=== PATIENT | female | born 1980 | race American Indian/Alaskan Native ===

== ENCOUNTER 2019-06-23 19:54 | Emergency (ER) | payer BC ==
[2019-06-23 20:00] VITALS: BP 148/98
--- NOTE | 2019-06-23 20:18 | Emergency Department Report ---
HPI - General Chief Complaint: Upper Respiratory Infection Time Seen by Provider: 06/23/19 20:18 - HPI HPI: This is a 38-year-old female well-nourished well-developed in no acute distress. Patient here reports that she is cough with stuffy nose and occasional chest pain with coughing. She said this is been going on for 5 days. She denies any fever or chills. Denies any nausea vomiting or diarrhea. Denies any shortness of breath or chest pain. Denies any neck pain or stiffness. Denies any headache. Denies any abdominal pain, vaginal bleeding or discharge. Pain is 0/10. She has a history of hypertension and asthma and report that she feels like it is her allergy but is a little bit worse than usual. No medication taken prior to coming to the emergency room. ED Past Medical Hx - Past Medical History Previous Medical History?: Yes Hx Hypertension: Yes Hx Asthma: Yes - Surgical History Past Surgical History?: Yes Hx Cholecystectomy: Yes (2017) - Family History Family history: hypertension - Social History Smoking Status: Never Smoker Substance Use Type: Alcohol - Medications Home Medications: Home Medications Medication Instructions Recorded Confirmed Last Taken Type Azithromycin [Zithromax Z-BO] 250 mg PO DAILY 5 Days #1 pkg 06/23/19 Unknown Rx Benzonatate [Tessalon Perles] 100 mg PO Q8HR PRN #12 capsule 06/23/19 Unknown Rx Cetirizine HCl [ZyrTEC] 10 mg PO QAM 14 Days #14 capsule 06/23/19 Unknown Rx Fluticasone [Flonase] 1 spray NS QDAY 14 Days #1 bottle 06/23/19 Unknown Rx ED Review of Systems ROS: Stated complaint: STUFFY NOSE, CHEST PAIN COUGH Other details as noted in HPI Constitutional: denies: chills, fever Eyes: denies: eye discharge ENT: congestion. denies: ear pain, throat pain, hearing loss Respiratory: cough. denies: shortness of breath, SOB with exertion, SOB at rest, stridor, wheezing Cardiovascular: chest pain (With coughing). denies: palpitations, dyspnea on exertion, edema, syncope Gastrointestinal: denies: abdominal pain, nausea, vomiting Genitourinary: denies: dysuria, hematuria, abnormal menses Musculoskeletal: denies: back pain, joint swelling, arthralgia, myalgia Skin: denies: rash Neurological: denies: headache, numbness, paresthesias, abnormal gait, vertigo Physical Exam - Physical Exam Vital Signs: Vital Signs 06/23/19 19:59 Temperature 98.6 F Pulse Rate 102 H Respiratory 20 Rate Blood Pressure 148/98 O2 Sat by Pulse 97 Oximetry Vital Signs 06/23/19 06/23/19 19:59 21:30 Temperature 98.6 F Pulse Rate 102 H 78 Respiratory 20 Rate Blood Pressure 148/98 O2 Sat by Pulse 97 Oximetry General: This is a 38-year-old female well-nourished well-developed in no acute distress and nontoxic in appearance. Physical Exam: Head: Normocephalic atraumatic Ears:BIateral middle ear congested without erythema and loss of bony landmarks. Daniel EAC with normal exam. No mastoid bone tenderness. Mouth: Moist, no pharyngeal erythema or exudate . UVULA midline and oral airways patent. No peritonsillar abscess Neck: Nontender to palpate, supple, normal range of motion. No adenopathy. No c- spine tenderness. Nose: Bilateral nasal mucosa congested/erythema with clear drainage. Maxillary and frontal non-sinuses tender to palpate. Eyes: Bilateral Sclerae and conjunctiva without injection. Bilateral pupils equal and reactive to light. Bilateral lids are normal. Normal accommodation.BEOMI Lungs: Clear to auscultate bilaterally, no rhonchi wheezes or rales. Normal work of breathing and no chest wall tenderness. CV: S1, S2. Regular rate and rhythm negative murmur. Capillary refill is less than 3 seconds Abdomen: Nontender to palpation in all quadrants: No guarding or rebound tenderness. Positive bowel sounds in all quadrants Extremity: No clubbing, cyanosis or edema. +2 pulses in all extremities and no neurovascular compromise Skin: Clean dry and intact, no rashes or lesions Psych: Normal mood and behavior ED Course Vital Signs 06/23/19 19:59 Temperature 98.6 F Pulse Rate 102 H Respiratory 20 Rate Blood Pressure 148/98 O2 Sat by Pulse 97 Oximetry - Reevaluation(s) Reevaluation #1: 06/23/19 21:31 Patient stable throughout ED course. She is in no acute distress. ED Medical Decision Making - EKG Data -: EKG Interpreted by Me (Attending physician) EKG shows normal: sinus rhythm Rate: normal - EKG Data Interpretation: normal EKG - Radiology Data Radiology results: report reviewed Chest x-ray PA and lateral dictated by radiologist and report reviewed by myself. No acute findings Report Status:Finalized Findings [facility] [address] [place] [address] XRay Report Signed Patient: ROBBIN ANDREA MR#: [id number] : 1980 Acct:[id number] Age/Sex: 38 / F ADM Date: 06/23/19 Loc: ED Attending Dr: Ordering Physician: RAQUEL JEROME Date of Service: 06/23/19 Procedure(s): XR chest routine 2V Accession Number(s): [id number] cc: RAQUEL JEROME Fluoro Time In Minutes: CHEST 2 VIEWS INDICATION / CLINICAL INFORMATION: MAIN: COUGH,sob X 1 WEEK. COMPARISON: None available. FINDINGS: SUPPORT DEVICES: None. HEART / MEDIASTINUM: No significant abnormality. LUNGS / PLEURA: No significant pulmonary or pleural abnormality. No pneumothorax. ADDITIONAL FINDINGS: No significant additional findings. IMPRESSION: 1. No acute findings. Signer Name: Alicia Gomes MD Signed: 06/23/2019 8:47 PM Workstation Name: [id number] Transcribed By: C Dictated By: Alicia Gomes MD Electronically Authenticated By: Alicia Gomes MD Signed Date/Time: 06/23/192046 DD/ 45 TD/TT: - Medical Decision Making This is a 38-year-old female here with cough and nasal congestion with runny nose. Patient found to have mild sinusitis. She is in no acute distress her vital signs stable she is afebrile. Patient discharged home in stable condition with prescription for Zyrtec, Tessalon Perles, Flonase and Z-Bo. Chest PA and lateral dictated by radiologist and report reviewed by myself and no acute findings. Her EKG sinus rhythm without any acute findings. Patient to follow- up with her primary care doctor and she voiced understanding - Differential Diagnosis PNA, bronchitis, sinusitis, rhinitis, URI with cough and congestion Critical care attestation.: If time is entered above; I have spent that time in minutes in the direct care of this critically ill patient, excluding procedure time. ED Disposition Clinical Impression: URI with cough and congestion Disposition: DC-01 TO HOME OR SELFCARE Is pt being admited?: No Does the pt Need Aspirin: No Condition: Stable Instructions: Upper Respiratory Infection (ED), Acute Cough (ED) Additional Instructions: Please take medication as prescribed. Follow-up with your primary care physician in 2 to 3 days If your condition worsen, please return to the emergency room Prescriptions: Fluticasone [Flonase] 1 spray NS QDAY 14 Days #1 bottle Benzonatate [Tessalon Perles] 100 mg PO Q8HR PRN #12 capsule PRN Reason: Cough Azithromycin [Zithromax Z-BO] 250 mg PO DAILY 5 Days #1 pkg Cetirizine HCl [ZyrTEC] 10 mg PO QAM 14 Days #14 capsule Referrals: PRIMARY CARE, [Primary Care Provider] - 2-3 Days Forms: Work/School Release Form(ED)
--- NOTE | 2019-06-23 20:51 | XRay Report ---
CHEST 2 VIEWS INDICATION / CLINICAL INFORMATION: MAIN: COUGH,sob X 1 WEEK. COMPARISON: None available. FINDINGS: SUPPORT DEVICES: None. HEART / MEDIASTINUM: No significant abnormality. LUNGS / PLEURA: No significant pulmonary or pleural abnormality. No pneumothorax. ADDITIONAL FINDINGS: No significant additional findings. IMPRESSION: 1. No acute findings. Signer Name: Alicia Gomes MD Signed: 06/23/2019 8:47 PM Workstation Name: [id number]
== END 2019-06-23 21:57 | disposition home or self-care (01) ==
LOC: ED 19:54
DX: J06.9 Acute upper respiratory infection, unspecified (principal); I10 Essential (primary) hypertension; J45.909 Unspecified asthma, uncomplicated; Z90.49 Acquired absence of other specified parts of digestive tract; Z79.899 Other long term (current) drug therapy
CPT/HCPCS: 71046; 93005; 93010